=== PATIENT | male | born 1960 | race Caucasian/White ===

== ENCOUNTER 2024-08-09 11:58 | Emergency (ER) | payer BC ==
[2024-08-09 12:21] VITALS: TEMP 97.7; BMI 27.8
[2024-08-09 13:53] LABS: BASO % 0.4 % (0-2.0); EOS % 1.6 % (0-4.5); HEMOGLOBIN 14.4 GM/dL (11.7-16.9); INR 0.94 (0.83-1.09); LYMPH % 15.4 % (8-40); MCHC 33.5 g/dl (32.0-35.9); MEAN CELL VOLUME 92.5 fl (80-96); MEAN PLT VOLUME 8.7 fl (7.5-11.1); MONO % 7.8 % (3.8-10.2); NEUT % 74.8 % (42.8-82.8); PLATELET COUNT 373 10^3/uL (134-434); PROTHROMBIN TIME (PATIENT) 10.6 SEC (9.7-13.0); RBC 4.65 M/mm3 (4.00-5.60); RDW 12.6 % (11.9-15.9); WHITE BLOOD COUNT 9.4 K/mm3 (4.0-10.0)
[2024-08-09 13:56] LABS: ACTIVATED PTT 26.3 SECONDS (25.2-36.5)
[2024-08-09 14:07] LABS: ALBUMIN 3.5 g/dl (3.4-5.0); BLOOD UREA NITROGEN 13.1 mg/dL (7-18); CALCIUM 8.9 mg/dL (8.5-10.1); MAGNESIUM 1.8 mg/dL (1.8-2.4)
[2024-08-09 14:11] LABS: CREATININE 0.8 mg/dL (0.55-1.3)
[2024-08-09 14:12] LABS: TOT PROT 6.9 g/dl (6.4-8.2)
[2024-08-09 14:35] VITALS: RESP 18
[2024-08-09 15:18] LABS: HIV INTERPRETATION NEGATIVE (NEGATIVE)
[2024-08-09 15:30] LABS: BILIRUBIN,TOTAL 0.4 mg/dL (0.2-1)
[2024-08-09 15:35] VITALS: BP 169/90; PULSE 89
== END 2024-08-09 16:59 | disposition home or self-care (01) ==
LOC: JER 11:58
DX: R20.0 Anesthesia of skin (principal); R20.2 Paresthesia of skin
CPT/HCPCS: 36415; 70450-TC; 71046-TC-FY; 80053; 83735; 84439; 84443; 84484; 85025; 85610; 85730; 86803; 86850; 86900; 86901; 87389; 93005; 93010; 99285-25